=== PATIENT | female | born 1965 | race Caucasian/White ===

== ENCOUNTER 2024-07-08 09:14 | Day surgery (SDC) | payer BC, OTHER ==
[2024-07-08] MEDS: Tetracaine HCl/PF 0.5% 4 ML Bottle EYEBOTH SCH (07:26)
[2024-07-08] MEDS: Brimonidine 0.2% Ophth Soln 5 ML Bottle EYERT SCH (07:26)
[2024-07-08] MEDS: Cefuroxime 10 MG/ML SYRINGE EYERT SCH (07:26)
[2024-07-08] MEDS: Lidocaine 1% PF 2 ML SDV INJECT SCH (07:26)
[2024-07-08] MEDS: Pilocarpine 4% Ophth Soln 15 ML Bot EYERT SCH (07:26)
[2024-07-08] MEDS: Phenylephrine 2.5% Ophth Soln 2 ML Bot EYERT SCH (07:26)
[2024-07-08] MEDS: Ofloxacin 0.3% Ophth Soln 5 ML Bottle EYERT SCH (07:27)
[2024-07-08] MEDS: Tropicamide 1% Ophth Soln 3 ML Bottle EYERT SCH (10:36)
== END 2024-07-08 12:23 ==
LOC: JD.SDS 09:14
PROVIDERS: ATTEND Ophthalmology
DX: H25.811 Combined forms of age-related cataract, right eye (principal); H52.31 Anisometropia; H40.011 Open angle with borderline findings, low risk, right eye; I10 Essential (primary) hypertension; E78.2 Mixed hyperlipidemia; J45.909 Unspecified asthma, uncomplicated; Z79.899 Other long term (current) drug therapy
CPT/HCPCS: 66984; A9270; J0697; J3490